=== PATIENT | male | born 1990 | race Caucasian/White ===

== ENCOUNTER 2019-07-20 18:00 | Emergency (ER) | payer SELFPAY ==
[~2019-07-20] VITALS: Ht 180.3 cm; Wt 74.8 kg
--- NOTE | 2019-07-20 18:00 | NUR ---
Patient BIB [facility] for pre-booking medical screening exam, transferred to bed 1. RN evaluating patient at bedside.
[2019-07-20 18:01] VITALS: BP 112/68
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
--- NOTE | 2019-07-20 18:11 | NUR ---
Patient being evaluated by Dr. Candelario at bedside.
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
[2019-07-20 18:47] VITALS: BP 112/68
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
== END 2019-07-20 18:47 ==
LOC: MED 18:00
DX: Z02.89 Encounter for other administrative examinations (principal); R52 Pain, unspecified
CPT/HCPCS: 99283